=== PATIENT | female | born 1955 | race Caucasian/White ===

== ENCOUNTER 2023-05-24 06:47 | Outpatient (REF) | payer BC, SELFPAY ==
[2023-05-24 11:41] LABS: Appearance Urine Clear; Color Urine Dark Yellow; Glucose Urine UA Negative (Negative); Leukocyte Esterase Urine Negative (Negative); Nitrite Urine Negative (Negative); PH 5.5 (5.0-9.0); Urine Blood Negative (Negative); Urine Ketones Trace mg/dL (Negative); Urine Protein Negative (Neg-Trace)
[2023-05-24 11:45] LABS: Bacteria Urine Trace (None Seen); Hyaline Casts Urine 0-2 /LPF (0-2); RBC Urine 0-2 /HPF (0-2); Squamous Epithelial Cell Urine >20 /HPF (0-2); WBC Urine 0-5 /HPF (0-5)
[2023-05-24 12:41] LABS: Alanine Aminotransferase 35 U/L (0-31); Albumin Level 4.2 g/dL (3.5-5.0); Alkaline Phosphatase 56 U/L (39-117); Anion Gap 12 (12-20); Aspartate Amino Transferase 25 U/L (5-31); Bilirubin Total 0.6 mg/dL (0.0-1.0); Blood Urea Nitrogen 13 mg/dL (9-16); Calcium 9.9 mg/dL (8.4-10.2); Carbon Dioxide 22 mmol/L (22-29); Chloride 109 mmol/L (96-108); Cholesterol 192 mg/dL (<200); Estimated Glomerular Filt Rate > 60; Glucose Fasting 92 mg/dL (60-99); HDL Cholesterol 80 mg/dL (>40); LDL Cholesterol Calculated 95 mg/dL (<100); Potassium 4.3 mmol/L (3.3-5.1); Sodium 139 mmol/L (135-145); TSH reflex Free T4 < 0.01 uIU/mL (0.32-4.0); Total Protein 6.8 g/dL (6.5-8.0); Triglycerides 86 mg/dL (<150); Vitamin D 25-OH Total 89.8 ng/mL (>30)
[2023-05-24 14:25] LABS: Free T4 (Free Thyroxine) 0.93 ng/dL (0.71-1.85)
[2023-05-26 01:19] LABS: Triiodothyronine T3 Free 3.3 pg/mL (2.3-4.2)
== END 2023-05-24 06:48 | disposition home or self-care (01) ==
LOC: HO.HMGCLDS 06:47
PROVIDERS: PCP Internal Medicine; Visit Provider Internal Medicine
DX: E03.9 Hypothyroidism, unspecified (principal); E55.9 Vitamin D deficiency, unspecified; N95.0 Postmenopausal bleeding; Z98.890 Other specified postprocedural states
CPT/HCPCS: 36415; 80053; 80061; 81001; 82306; 84439; 84443; 84481

== ENCOUNTER 2023-06-06 10:43 | Outpatient (AMB) | payer BC, SELFPAY ==
[2023-06-06 11:12] VITALS: BP 118/70; PULSE 76; O2SAT 96; BMI 27.1
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
== END 2023-06-06 12:28 | disposition home or self-care (01) ==
PROVIDERS: PCP Internal Medicine; Visit Provider Internal Medicine
DX: Z00.00 Encounter for general adult medical examination without abnormal findings (principal); Z53.20 Procedure and treatment not carried out because of patient's decision for unspecified reasons; E03.9 Hypothyroidism, unspecified
CPT/HCPCS: 99397

== ENCOUNTER 2023-08-02 07:34 | Outpatient (REF) | payer BC, SELFPAY ==
[2023-08-03 17:28] LABS: Triiodothyronine T3 Free 3.9 pg/mL (2.3-4.2)
[2023-08-03 22:58] LABS: DHEA Sulfate 155 mcg/dL (9-118)
[2023-08-07 18:54] LABS: Testosterone, Free 1.3 pg/mL (0.1-6.4); Testosterone, Total 24 ng/dL (2-45)
[2023-08-07 22:48] LABS: Estrone 103 pg/mL
[2023-08-08 03:19] LABS: Dihydrotestosterone 10 ng/dL (< OR = 20)
[2023-08-09 19:03] LABS: Progesterone 1.2 ng/mL
[2023-08-15 04:28] LABS: Estradiol Free 0.26 pg/mL; Estradiol, Ultrasensitive 18 pg/mL
== END 2023-08-02 07:35 | disposition home or self-care (01) ==
LOC: HO.HMGCLDS 07:34
PROVIDERS: PCP Internal Medicine; Visit Provider Internal Medicine
DX: E78.5 Hyperlipidemia, unspecified (principal); N95.1 Menopausal and female climacteric states; R53.83 Other fatigue; E34.9 Endocrine disorder, unspecified; E07.9 Disorder of thyroid, unspecified
CPT/HCPCS: 36415; 82627; 82642; 82670; 82679; 82681; 83001; 84144; 84402; 84403; 84439; 84481

== ENCOUNTER 2023-12-17 10:55 | Outpatient (AMB) | payer BC, SELFPAY ==
[2023-12-17 10:59] VITALS: BP 124/70; PULSE 77; TEMP 36.6; O2SAT 96; BMI 28.0
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
== END 2023-12-17 15:01 | disposition home or self-care (01) ==
PROVIDERS: PCP Internal Medicine; Visit Provider Internal Medicine
DX: J06.9 Acute upper respiratory infection, unspecified (principal)
CPT/HCPCS: 99213

== ENCOUNTER 2024-03-12 06:28 | Outpatient (REF) | payer BC, SELFPAY ==
[2024-03-12 10:46] LABS: Cholesterol 197 mg/dL (<200); HDL Cholesterol 68 mg/dL (>40); LDL Cholesterol Calculated 118 mg/dL (<100); Triglycerides 55 mg/dL (<150)
[2024-03-12 11:00] LABS: Free T4 (Free Thyroxine) 0.96 ng/dL (0.71-1.85)
[2024-03-13 15:18] LABS: Triiodothyronine T3 Free 4.6 pg/mL (2.3-4.2)
[2024-03-13 16:43] LABS: DHEA Sulfate 131 mcg/dL (9-118); Follicle Stimulating Hormone 64.5 mIU/mL
[2024-03-19 21:44] LABS: Testosterone, Free 1.2 pg/mL (0.1-6.4); Testosterone, Total 23 ng/dL (2-45)
[2024-03-21 04:59] LABS: Estradiol Free 0.09 pg/mL; Estradiol, Ultrasensitive 6 pg/mL
[2024-03-24 04:54] LABS: Estrone 26 pg/mL
[2024-03-26 22:39] LABS: Dihydrotestosterone 15 ng/dL (< OR = 20)
== END 2024-03-12 06:29 | disposition home or self-care (01) ==
LOC: HO.HMGCLDS 06:28
PROVIDERS: PCP Internal Medicine; Visit Provider Internal Medicine
DX: E34.9 Endocrine disorder, unspecified (principal); R53.83 Other fatigue; E07.9 Disorder of thyroid, unspecified; E78.5 Hyperlipidemia, unspecified
CPT/HCPCS: 36415; 80061; 82627; 82642; 82670; 82679; 82681; 83001; 84402; 84403; 84439; 84481

== ENCOUNTER 2024-06-16 11:29 | Outpatient (AMB) | payer BC, SELFPAY ==
[2024-06-16 11:36] VITALS: BP 126/80; PULSE 71; O2SAT 97; BMI 27.6
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
== END 2024-06-16 12:29 | disposition home or self-care (01) ==
PROVIDERS: PCP Internal Medicine; Visit Provider Internal Medicine
DX: Z00.00 Encounter for general adult medical examination without abnormal findings (principal); Z53.20 Procedure and treatment not carried out because of patient's decision for unspecified reasons; Z79.890 Hormone replacement therapy; E03.9 Hypothyroidism, unspecified

== ENCOUNTER → 2024-06-16 11:29 | Outpatient (BNVA) | payer BC, SELFPAY | PROVIDERS: PCP Internal Medicine; Visit Provider Internal Medicine | DX: Z00.00 Encounter for general adult medical examination without abnormal findings (principal); E03.9 Hypothyroidism, unspecified; Z79.899 Other long term (current) drug therapy | CPT/HCPCS: 96127 ==